=== PATIENT | female | born 1990 | race Hispanic/Latino ===

== ENCOUNTER 2019-08-19 10:26 | Observation (INO) | payer OTHER, SELFPAY ==
[~2019-08-19 10:26] MED LIST: Indomethacin 50 MG SUPP PR ONE; Indomethacin 50 MG SUPP PR SCH
[2019-08-19 11:11] LABS: Bilirubin Large (Negative); Blood, Urine Negative (Negative); Glucose, Urine (Dipstick) Negative (Negative); Leukocyte Negative (Negative); Nitrite Negative (Negative); Protein, Urine (Dipstick) Negative (Neg-Trace)
[2019-08-19 11:12] LABS: Clarity Clear (Clear)
[2019-08-19 11:14] LABS: Bacteria/HPF None Seen HPF (None Seen); Mucous/LPF Rare LPF (<2+); Squamous Epithelial 0-3 HPF (0-3); WBC/HPF 0-3 HPF (0-3)
[2019-08-19] MEDS ORDERED: Morphine 4 MG/ML VIAL ONE (11:26)
[2019-08-19] MEDS ORDERED: Ondansetron PF 4 MG/2 ML Vial ONE ×2 (11:26→15:45)
[2019-08-19 11:30] LABS: #Eosinphils 0.1 thou/uL (0.0-0.7); #Monocytes 0.7 thou/uL (0.11-0.59); #Neutrophils 6.9 thou/uL (1.40-6.50); %Basophils 0.3 % (0.0-1.0); %Eosinophils 1.3 % (0.0-10.0); %Lymphocytes 11.5 % (21.0-51.0); %Monocytes 7.5 % (0.0-10.0); %Neutrophils 79.5 % (42.0-75.0); Hemoglobin 14.6 g/dL (12.0-16.0); Mean Corpuscular HGB CONC 33.4 g/dL (32.0-36.0); Mean Corpuscular Hemoglobin 32.2 pg (27.0-31.0); Mean Corpuscular Volume 96.5 fL (78.0-98.0); Mean Platelet Volume 7.7 fL (7.4-10.4); Platelet Count 289 thou/uL (130-400); RBC Distribution Width 11.6 % (11.5-14.5); Red Blood Cell (RBC) Count 4.55 mill/uL (4.20-5.40); White Blood Cell (WBC) Count 8.7 thou/uL (4.8-10.8)
[2019-08-19 11:43] LABS: BHCG - Serum Negative (NEGATIVE); Pregs Control Background? CLEAR/WHITE (CLR/WHITE); Pregs Control Bar Appear? YES (CONTROL BAR)
[2019-08-19 11:51] LABS: ALT (SGPT) 626 U/L (8-55); AST (SGOT) 491 U/L (5-34); Alkaline Phosphatase 206 U/L (40-110); Anion Gap 11 mmol/L (10-20); BUN (Urea Nitrogen) 7 mg/dL (7.0-18.7); Bilirubin, Total 3.9 mg/dL (0.2-1.2); Calc. Creatinine Clearance 0 mL/min (70-130); Carbon Dioxide 23 mmol/L (22-29); Chloride 106 mmol/L (98-107); Estimated GFR-MDRD Greater than 90; Globulin 2.9 g/dL (2.4-3.5); Glucose 119 mg/dL (70-105); Lipase 14 U/L (8-78); Potassium 4.4 mmol/L (3.5-5.1); Protein, Total 6.9 g/dL (6.0-8.3); Sodium 136 mmol/L (136-145)
--- NOTE | 2019-08-19 13:16 | ULT ---
RIGHT UPPER QUADRANT ULTRASOUND: Date: 08/19/2019 HISTORY: Right upper quadrant pain, gallstones. FINDINGS: Shadowing gallstones are seen measuring up to 3.0 cm. There is mild gallbladder wall thickening measu ring about 4.0 mm. No pericholecystic fluid is seen. The common duct measures 6.0 mm in diameter. The liver, pancreas, and right kidney are unremarkable. No free fluid is identified. IMPRESSION: Cholelithiasis with mild gallbladder wall thickening. POS: OFF
--- NOTE | 2019-08-19 13:46 | HP ---
CHIEF COMPLAINT: Upper abdominal pain. HISTORY OF PRESENT ILLNESS: This is a 29-year-old female with a 1-week history of pain in her upper abdomen, described as dull ache, worse after meals, associated with nausea and early satiety. No significant vomiting. No change in stools. Never had this pain before previously. Denies history of jaundice, gallstones, or pancreatitis in the past. PAST MEDICAL HISTORY: She denies. PAST SURGICAL HISTORY: Denies. MEDICATIONS: None. ALLERGIES: NO KNOWN DRUG ALLERGIES. SOCIAL HISTORY: No smoking, alcohol, or other drugs. REVIEW OF SYSTEMS: Ten-system review of systems is otherwise negative unless described above. PHYSICAL EXAMINATION: VITAL SIGNS: Her blood pressure is 147/70. Her pulse is 74. She is afebrile. Respirations are 12. HEENT: Sclerae anicteric. Oropharynx clear. NECK: No lymphadenopathy. CHEST: Clear. HEART: Regular rate. ABDOMEN: Soft, but tender in the right upper quadrant. No guarding or rebound. No abdominal or inguinal hernias. EXTREMITIES: No ischemia or edema to extremities. LABORATORY DATA: White blood cell count is 8, hemoglobin is 14. Sodium 136, potassium 4.4, creatinine 0.65, bilirubin 3.9, lipase normal. Ultrasound shows gallstones, dilated common bile duct to 6 mm. ASSESSMENT: Acute cholecystitis with elevation of bilirubin. PLAN: Have Dr. Narayan to see for an ERCP first. We will need laparoscopic cholecystectomy before discharge. Job ID: [id number]
[2019-08-19] MEDS ORDERED: Iopamidol 0 ML FS ONE (14:41)
[2019-08-19] MEDS ORDERED: Iopamidol 50 ML FS ONE (14:42)
[2019-08-19] MEDS ORDERED: Indomethacin 50 MG SUPP ONE (14:44)
[2019-08-19] MEDS ORDERED: Fentanyl 100 MCG/2 ML VIAL ONE (14:48)
[2019-08-19] MEDS ORDERED: Midazolam HCl 2 mg/2 ml Vial ONE (14:48)
[2019-08-19] MEDS ORDERED: HYDROmorphone 0.5 MG/0.5 ML SYRINGE ONE (14:48)
[2019-08-19] MEDS ORDERED: Piperacillin/Tazobactam 3.375 GM VIAL ONE (14:49)
[2019-08-19] MEDS ORDERED: Sodium Chloride 0.9% 100 ML ONE (14:49)
[2019-08-19] MEDS ORDERED: Glycopyrrolate 0.2 MG/ML 5 ML SYRINGE ONE (15:45)
[2019-08-19] MEDS ORDERED: Ketorolac Tromethamine 30 MG/ML VIAL ONE (15:45)
[2019-08-19] MEDS ORDERED: Dexamethasone 20 MG/5 ML VIAL ONE (15:45)
[2019-08-19] MEDS ORDERED: Lidocaine 1% PF 5 ML VIAL ONE (15:45)
[2019-08-19] MEDS ORDERED: Rocuronium Bromide 10 MG/ML (10ML VIAL) ONE (15:45)
[2019-08-19] MEDS ORDERED: PROPOFOL 200 MG/20 ML VIAL ONE (15:45)
--- NOTE | 2019-08-19 15:51 | CON ---
DATE OF CONSULTATION: 08/19/2019 REASON FOR CONSULTATION: Elevated LFTs, right upper quadrant abdominal pain, concern for choledocholithiasis. CONSULTING PROVIDER: Romie Jolly MD HISTORY OF PRESENT ILLNESS: The patient is a 29-year-old female with past medical history of gallstones/cholelithiasis, presenting with complaints of right upper quadrant abdominal pain. She states that she was in her usual state of health until approximately 1 week ago when she had acute onset of right upper quadrant abdominal pain, characterized as a sharp type sensation, would radiate to her mid back, was intermittent (the patient has had 2 episodes in the last week, the 1st lasting 36 hours, this most recent one prompting her admission), and reaching a severity of 8/10. She denied any exacerbating factors, but only felt better after administration of pain medications here in the ER as well as after vomiting, but the pain would return shortly thereafter. Associated symptoms included nausea, vomiting, decreased appetite, diaphoresis, palpitations, eructation, shortness of breath, and diarrhea (only one episode) with the 2nd occurrence of this worsening abdominal pain then prompted her to seek healthcare assistance at the [facility] ER where initial labs were consistent with possible biliary obstruction given elevated AST, ALT, alkaline phosphatase, and total bilirubin. Currently, she denies any fevers, chills, hematemesis, melena, hematochezia, dysphagia, or odynophagia. REVIEW OF SYSTEMS: A 10-category review of systems was obtained with all responses negative except for the pertinent positives as listed in HPI. PAST MEDICAL HISTORY: Cholelithiasis. PAST SURGICAL HISTORY: None. FAMILY HISTORY: Lung cancer (mother), denies any GI malignancies. SOCIAL HISTORY: Denies any tobacco or alcohol, but does use marijuana on a regular basis. OUTPATIENT MEDICATIONS: Excedrin Migraine as needed. ALLERGIES: NO KNOWN DRUG ALLERGIES. PHYSICAL EXAMINATION: VITAL SIGNS: Temperature 98.7, pulse 80, blood pressure 160/95, respiratory rate 18, and saturating 100% on room air. GENERAL: The patient was lying in bed, in no acute distress. Alert and oriented x4. HEENT: Normocephalic and atraumatic. NECK: Supple. Mild scleral icterus noted. CARDIOVASCULAR: Regular rate and rhythm with no discernable murmurs, gallops, or rubs. RESPIRATORY: Clear to auscultation bilaterally with no discernable wheezes or rales. ABDOMEN: Normoactive bowel sounds. Soft and nondistended. Mild tenderness to palpation in the midepigastric/periumbilical region. EXTREMITIES: No cyanosis, clubbing, or edema. LABORATORY DATA: CBC with a white blood cell count of 8.7, hemoglobin 14.6, hematocrit 43.9, and platelets 289. Chemistry with a sodium of 136, potassium 4.4, chloride 106, CO2 of 23, BUN 7, creatinine 0.65, and glucose 119. AST 491, ALT 626, alkaline phosphatase 206, total bilirubin 3.9, albumin 4.0, and lipase 14. IMAGING DATA: Abdominal ultrasound was obtained on 08/19/2019, which showed shadowing within the gallbladder, consistent with gallstones, measuring up to 3 cm in size. Gallbladder wall thickening was also seen up to 4 mm in size. The common bile duct measured approximately 6 mm in size. ASSESSMENT AND PLAN: The patient is a 29-year-old female with past medical history of cholelithiasis, presenting with right upper quadrant abdominal pain and elevated liver function tests with imaging consistent with choledocholithiasis. Elevated liver function tests/choledocholithiasis: The patient is presenting with a discrete episode of pain approximately 1 week ago, characterized as a sharp type sensation in the right upper quadrant, that would radiate to her mid back, it lasted for approximately 36 hours and then spontaneously resolved. However, yesterday, she had recurrence of this abdominal pain, which then prompted her to seek healthcare assistance. While in the [facility] ER, she was noted to have significantly elevated liver function tests in an obstructive-type pattern in addition to an abdominal ultrasound, which showed gallstones in the gallbladder as well as the common bile duct measuring at the upper limit of normal. Based on her elevated total bilirubin, the common bile duct at the upper limit of normal, and the presence of gallstones in the gallbladder, the likelihood of choledocholithiasis is high, and therefore, the patient would benefit from endoscopic retrograde cholangiopancreatography prior to cholecystectomy. RECOMMENDATIONS: 1. Would continue n.p.o. status for this patient in anticipation for ERCP. 2. Would place the patient on broad-spectrum antibiotics including Zosyn for prophylaxis against cholangitis. 3. We will plan for ERCP later today for intraluminal evaluation and possible stone extraction. 4. Would recommend a cholecystectomy during the course of this admission regardless of the findings seen during ERCP today. Further recommendations to follow ERCP. We will continue to follow. Please call with any questions. Job ID: [id number]
[2019-08-19] MEDS ORDERED: PACU-Morphine 4MG/ML VIAL SLOW IVP PRN ×2 (16:10→17:19)
[2019-08-19] MEDS ORDERED: Ondansetron HCl/PF 4 MG/2 ML Vial IVP PRN ×2 (16:10→17:19)
[2019-08-19] MEDS ORDERED: Promethazine HCl 25 MG/ML VIAL IM PRN ×3 (16:10→17:35)
[2019-08-19] MEDS ORDERED: HYDROmorphone 2 MG/ML VIAL SLOW IVP PRN ×2 (16:10→17:19)
[2019-08-19] MEDS ORDERED: Promethazine HCl 25 MG/ML VIAL SLOW IVP PRN ×2 (16:10→17:19)
--- NOTE | 2019-08-19 16:23 | RAD ---
ERCP: History: Gallstones FINDINGS: Four spot fluoroscopic intraoperative images of the right upper quadrant during an ERCP demonstrate n umerous filling defects in the gallbladder consistent with gallstones. No filling defects are seen in the common bile duct, intrahepatic ducts or branches and the cystic duct. There is contrast in the d uodenum. IMPRESSION: As above. POS: OFF
[2019-08-19] MEDS ORDERED: hydrALAZINE 20 MG/ML VIAL SLOW IVP PRN (17:35)
[2019-08-19] MEDS ORDERED: Fentanyl 100 MCG/2 ML VIAL SLOW IVP PRN ×2 (17:35)
[2019-08-19] MEDS ORDERED: Ondansetron PF 4 MG/2 ML Vial IVP PRN (17:35)
[2019-08-19] MEDS ORDERED: Ketorolac Tromethamine 30 MG/ML VIAL IVP PRN (17:35)
[2019-08-19] MEDS ORDERED: Calcium Carbonate 500 MG ChewTAB PO PRN (17:35)
[2019-08-19] MEDS ORDERED: Mag-Al 1200 mg/1200 mg/30 ML UDCUP PO PRN (17:35)
[2019-08-19] MEDS ORDERED: Dextrose 50% Abboject 50 ML SYRINGE SLOW IVP PRN (17:35)
[2019-08-19] MEDS ORDERED: Dextrose 5% in Water 1,000 ML IV PRN (17:35)
[2019-08-19] MEDS ORDERED: Piperacillin/Tazobactam 3.375 GM in Sodium Chloride 0.9% 100 ML IVPB SCH (18:00)
[2019-08-19] MEDS: D5 1/2 NS w/20 mEq KCL 1,000 ML IV SCH ×2 (18:15→20:02)
[2019-08-19 18:21] VITALS: BMI 42.9
[2019-08-19] MEDS: Famotidine 20 MG TAB PO SCH (19:59)
[2019-08-19] MEDS: Piperacillin/Tazobactam 3.375 GM in Sodium Chloride 0.9% 100 ML IVPB SCH (20:01)
[2019-08-19] MEDS: Famotidine/PF 20 mg/2ml Vial SLOW IVP SCH (20:02)
--- NOTE | 2019-08-19 22:10 | OP ---
DATE OF PROCEDURE: 08/19/2019 PROCEDURE: ERCP with sphincterotomy. INDICATION FOR PROCEDURE: Elevated LFTs, cholelithiasis with possibility of choledocholithiasis. DESCRIPTION OF PROCEDURE: After the risks and benefits of the procedure were explained to the patient, including risks of bleeding, infection, perforation, reactions to anesthesia, aspiration, post ERCP pancreatitis, and/or pain, informed consent was obtained. Patient was then taken to the endoscopy suite, where general anesthesia was administered, followed by endotracheal tube intubation. After the patient was intubated and sedated, she was then maneuvered into the prone position in preparation for the ERCP. Once in adequate position, the standard duodenoscope was introduced into the mouth with intubation of the esophagus, stomach, and the proximal small intestines with the findings listed below. The patient tolerated the procedure well with no immediate perioperative complications. Upon conclusion of the procedure, all equipment was removed from the patient and she was transferred to PACU in satisfactory condition. FINDINGS: EGD findings: Limited views of the esophagus, stomach, and the proximal small intestines were obtained given the side-viewing nature of the duodenoscope. However, of the mucosa seen, normal-appearing mucosa was seen within the entire esophagus. A large amount of retained solid and liquid food was seen in the stomach limiting visualization of approximately 40% with inability to see the entirety of the gastric mucosa effectively. Of the mucosa seen, normal-appearing mucosa was seen in the gastric cardia, fundus, body, greater curvature, antrum, and incisura. Within the duodenum, partial visualization of the duodenal bulb and second portion of duodenum were normal. ERCP findings: The ampulla of Vater was easily identified within the second portion of the duodenum with the ampulla exhibiting significantly increased mucosal erythema and mild swelling at the ampulla itself. There was no evidence of ulceration or active/recent bleeding from the ampulla, however. Using a 5 mm Ultratome/sphincterotome, the ampulla was cannulated with a guidewire placed within the intrahepatic tree. A cholangiogram was then performed, which showed the intra and extrahepatic biliary tree well with no evidence of filling defects and the common bile duct measuring approximately 3 to 4 mm in size. The cystic duct filled adequately as well showing numerous large gallstones within the gallbladder itself, but no stones within the cystic duct. The intrahepatics were also adequately visualized with no evidence of intrahepatic dilatation. However, given her elevated LFTs, a sphincterotomy was performed in anticipation of a balloon sweep. After a generous sphincterotomy was performed, the sphincterotome was exchanged for a biliary balloon over the guidewire via an exchange technique. Once the balloon was in adequate position, it was advanced into the junction of the common hepatic and common bile duct and inflated to 12 mm in size. Using the 12 mm balloon, it was able to be extracted through the common bile duct without difficulty with no evidence of stone or debris. The common hepatic and common bile duct were then swept with the balloon on 3 separate occasions with successive balloon sweeps yielding no evidence of debris or stones. At the end of the procedure, an occlusion cholangiogram was performed again not showing any evidence of filling defects and a common hepatic and common bile ducts were draining adequately via fluoroscopy upon removal of the biliary balloon. IMPRESSION: Cholelithiasis without choledocholithiasis. RECOMMENDATIONS: 1. Would admit the patient to the General Surgery Service with plans for cholecystectomy during this hospitalization. 2. Would continue to trend her LFTs to monitor response to treatment thus far. 3. Would continue patient on Zosyn as part of antibiotic prophylaxis for infection. 4. Continue to monitor clinically for signs of post ERCP pancreatitis. 5. We would place the patient on a clear liquid diet today, but n.p.o. at midnight in preparation for possible cholecystectomy tomorrow. 6. Pain control per primary team. We will continue to follow. Please call with any questions. Job ID: [id number]
[2019-08-20] MEDS: Piperacillin/Tazobactam 3.375 GM in Sodium Chloride 0.9% 100 ML IVPB SCH ×2 (02:25→07:19)
[2019-08-20 03:18] VITALS: BP 120/71; TEMP 98.1
[2019-08-20 05:04] LABS: #Monocytes 0.8 thou/uL (0.11-0.59); #Neutrophils 13.4 thou/uL (1.40-6.50); %Eosinophils 0.2 % (0.0-10.0); %Lymphocytes 6.8 % (21.0-51.0); %Neutrophils 87.9 % (42.0-75.0); Hemoglobin 13.6 g/dL (12.0-16.0); Mean Corpuscular HGB CONC 33.2 g/dL (32.0-36.0); Mean Corpuscular Hemoglobin 32.2 pg (27.0-31.0); Mean Platelet Volume 7.7 fL (7.4-10.4); Platelet Count 284 thou/uL (130-400); RBC Distribution Width 11.6 % (11.5-14.5); Red Blood Cell (RBC) Count 4.23 mill/uL (4.20-5.40); White Blood Cell (WBC) Count 15.2 thou/uL (4.8-10.8)
[2019-08-20 05:19] LABS: ALT (SGPT) 482 U/L (8-55); AST (SGOT) 161 U/L (5-34); Albumin 3.4 g/dL (3.5-5.0); Alkaline Phosphatase 182 U/L (40-110); Anion Gap 14 mmol/L (10-20); BUN (Urea Nitrogen) 8 mg/dL (7.0-18.7); Bilirubin, Total 1.1 mg/dL (0.2-1.2); Calc. Creatinine Clearance 214 mL/min (70-130); Calcium 8.3 mg/dL (7.8-10.44); Carbon Dioxide 16 mmol/L (22-29); Chloride 110 mmol/L (98-107); Estimated GFR-MDRD Greater than 90; Globulin 3.1 g/dL (2.4-3.5); Glucose 132 mg/dL (70-105); Lipase 302 U/L (8-78); Potassium 4.7 mmol/L (3.5-5.1); Protein, Total 6.5 g/dL (6.0-8.3); Sodium 135 mmol/L (136-145)
[2019-08-20] MEDS ORDERED: Fentanyl 100 MCG/2 ML VIAL ONE ×2 (06:00→08:23)
[2019-08-20] MEDS ORDERED: Promethazine HCl 25 MG/ML VIAL IM PRN ×2 (06:48→09:23)
[2019-08-20] MEDS ORDERED: Meperidine HCl/PF 25 MG/ML VIAL SLOW IVP PRN (06:48)
[2019-08-20] MEDS ORDERED: Ondansetron HCl/PF 4 MG/2 ML Vial IVP PRN (06:48)
[2019-08-20] MEDS ORDERED: Promethazine HCl 25 MG/ML VIAL SLOW IVP PRN (06:48)
[2019-08-20] MEDS ORDERED: Bupivacaine PF 0.5% 30 ML VIAL ONE (07:11)
[2019-08-20] MEDS ORDERED: Lidocaine 1% w/Epinephrine 1:100K 20 ML VIAL ONE (07:11)
[2019-08-20] MEDS: Famotidine/PF 20 mg/2ml Vial SLOW IVP SCH (07:19)
[2019-08-20] MEDS: Famotidine 20 MG TAB PO SCH (07:19)
[2019-08-20] MEDS ORDERED: Midazolam HCl 2 mg/2 ml Vial ONE (07:24)
[2019-08-20] MEDS ORDERED: Promethazine HCl 25 MG/ML VIAL ONE (08:49)
[2019-08-20] MEDS ORDERED: hydrALAZINE 20 MG/ML VIAL SLOW IVP PRN (09:23)
[2019-08-20] MEDS ORDERED: Dextrose 50% Abboject 50 ML SYRINGE SLOW IVP PRN (09:23)
[2019-08-20] MEDS ORDERED: Mag-Al 1200 mg/1200 mg/30 ML UDCUP PO PRN (09:23)
[2019-08-20] MEDS ORDERED: Ondansetron PF 4 MG/2 ML Vial IVP PRN (09:23)
[2019-08-20] MEDS ORDERED: Dextrose 5% in Water 1,000 ML IV PRN (09:23)
[2019-08-20] MEDS ORDERED: Morphine 4 MG/ML VIAL SLOW IVP PRN (09:23)
[2019-08-20] MEDS ORDERED: Calcium Carbonate 500 MG ChewTAB PO PRN (09:23)
[2019-08-20] MEDS ORDERED: Morphine 2 MG/ML SYRINGE SLOW IVP PRN (09:23)
[2019-08-20] MEDS ORDERED: HYDROcodone/Acetaminophen 7.5/325 mg Tablet PO PRN ×2 (09:23)
--- NOTE | 2019-08-20 09:23 | OP ---
DATE OF PROCEDURE: 08/20/2019 PREOPERATIVE DIAGNOSIS: Acute cholecystitis. POSTOPERATIVE DIAGNOSIS: Acute cholecystitis. PROCEDURE PERFORMED: Laparoscopic cholecystectomy. ANESTHESIA: General. ESTIMATED BLOOD LOSS: Minimal. COMPLICATIONS: None. SPECIMEN: Gallbladder. FINDINGS: Cholecystitis. PROCEDURE IN DETAIL: The patient was taken to the operating room and laid supine on the operating room table. After general anesthetic was obtained, the abdomen was prepped and draped in a sterile fashion. A curved incision was made below the umbilicus. Cautery was used to dissect down to the umbilical fascia. Umbilical fascia was incised and held up using a Abhay. The abdominal cavity was entered using a Rubi clamp. Holding stitch of Vicryl was placed on each side of the fascia. Sanches trocar was placed. High-flow pneumoperitoneum was obtained. An upper midline 5 mm port and 2 right upper quadrant 5 mm ports were placed under direct camera visualization. The gallbladder was retracted from the gallbladder fossa. The peritoneum of the gallbladder was opened anteriorly and posteriorly. The critical view triangle was seen showing only the cystic duct and cystic artery branching from medial to lateral. There were no other branching structures. Two clips were placed proximally on the cystic duct and one laterally. It was cut using laparoscopic scissors. The cystic artery was taken in the same way. Electrocautery was then used to dissect the gallbladder out of the gallbladder fossa. The gallbladder was placed in an Endo catch bag and brought out through the Sanches. There was no bleeding or bile in the liver bed. The cystic duct stump and cystic artery stump were intact, without evidence of extravasation or bleeding. All port sites were infiltrated using local anesthesia. All ports were removed under camera visualization. Pneumoperitoneum was let down. The Vicryl was used to close the fascial defect below the umbilicus. All incisions were irrigated and closed using 4-0 Monocryl and Dermabond. The patient was en route to Recovery in stable condition. All instrument counts, needle counts and lap counts were correct. Job ID: [id number]
[2019-08-20] MEDS ORDERED: Sodium Chloride 0.9% 1,000 ML IV SCH (09:30)
--- NOTE | 2019-08-20 09:57 | DIS ---
DATE OF ADMISSION: 08/19/2019 DATE OF DISCHARGE: 08/20/2019 ADMIT DIAGNOSIS: Acute cholecystitis. DISCHARGE DIAGNOSIS: Acute cholecystitis. PROCEDURES: Endoscopic retrograde cholangiopancreatography by Dr. Johnson without complication, cholecystectomy by Dr. Jolly without complication. CONDITION ON DISCHARGE: Improved. STAFF: Romie Jolly MD HOSPITAL COURSE: The patient was admitted with elevated bilirubin, underwent ERCP by Dr. Johnson. On 08/20/2019, she underwent laparoscopic cholecystectomy by Dr. Jolly. She is being discharged home today. Prescriptions for [place] and Zofran sent to [facility] on [address] She will follow up with me in 2 weeks. Job ID: [id number]
[2019-08-20] MEDS ORDERED: Rocuronium Bromide 10 MG/ML (10ML VIAL) ONE (12:04)
[2019-08-20] MEDS ORDERED: Succinylcholine Chloride 20 MG/ML 10 ml SYRINGE FS ONE (12:04)
[2019-08-20] MEDS ORDERED: Ondansetron PF 4 MG/2 ML Vial ONE (12:04)
[2019-08-20] MEDS ORDERED: Lidocaine 1% PF 5 ML VIAL ONE (12:04)
[2019-08-20] MEDS ORDERED: Ketorolac Tromethamine 30 MG/ML VIAL ONE (12:04)
[2019-08-20] MEDS ORDERED: Glycopyrrolate 0.2 MG/ML 5 ML SYRINGE ONE (12:04)
[2019-08-20] MEDS ORDERED: Dexamethasone 20 MG/5 ML VIAL ONE ×2 (12:04)
[2019-08-20] MEDS ORDERED: Metoclopramide HCl 10 MG/2 ML VIAL ONE (12:04)
[2019-08-20] MEDS ORDERED: PROPOFOL 200 MG/20 ML VIAL ONE (12:04)
[2019-08-20] MEDS ORDERED: Famotidine/PF 20 mg/2ml Vial SLOW IVP SCH (21:00)
[2019-08-20] MEDS ORDERED: Famotidine 20 MG TAB PO SCH (21:00)
== END 2019-08-20 13:40 | disposition home or self-care (01) ==
LOC: ERS 10:26 → SURG A 13:35 → ERS 14:18
PROVIDERS: ADMIT Internal Medicine; ATTEND Internal Medicine
PROC: 0F798ZZ Dilation of Common Bile Duct, Via Natural or Artificial Opening Endoscopic (ICD-10-PCS; principal; 2019-08-19)
PROC: 0FT44ZZ Resection of Gallbladder, Percutaneous Endoscopic Approach (ICD-10-PCS; 2019-08-20)
DX: K80.12 Calculus of gallbladder with acute and chronic cholecystitis without obstruction (principal); F12.10 Cannabis abuse, uncomplicated; R79.89 Other specified abnormal findings of blood chemistry; E66.01 Morbid (severe) obesity due to excess calories; Z68.41 Body mass index [BMI] 40.0-44.9, adult
CPT/HCPCS: 36415; 74330; 76705; 80053; 81003; 83690; 84703; 85025; 88304; 96361; 96374; 96375; 96376; G0378; J1100; J1170; J1610; J1885; J2001; J2250; J2270; J2405; J2543; J2550; J2704; J2765; J3010; J3480; J3490; Q9967; S0020; S0028